=== PATIENT | male | born 2000 | race African-American/Black ===

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

== ENCOUNTER 2022-04-23 10:00 | Emergency (ER) | payer OTHER ==
[~2022-04-23] VITALS: Ht 177.8 cm; Wt 64.0 kg
[2022-04-23] MEDS ORDERED: DICY10CA88 MT (12:04)
[2022-04-23] MEDS ORDERED: DICYCLOMINE HCL 10MG CAPSULE PO NR (12:15)
[2022-04-23 13:27] VITALS: BP 124/82
[2022-04-23 13:55] LABS: CLARITY URINE CLEAR (CLEAR); COLOR URINE YELLOW (YELLOW); KETONES URINE 1+ (NEGATIVE); LEUKOCYTE ESTERASE URINE NEGATIVE (NEGATIVE); NITRITE URINE NEGATIVE (NEGATIVE); OCCULT BLOOD URINE NEGATIVE (NEGATIVE); PH URINE 5.5 (4.5-8.0); PROTEIN URINE 1+ (NEGATIVE); SPECIFIC GRAVITY URINE 1.031 (1.005-1.030)
[2022-04-23 14:09] LABS: *AMPHETAMINES SCREEN URINE NEGATIVE (NEGATIVE); *BARBITURATES SCREEN URINE NEGATIVE (NEGATIVE); *BENZODIAZEPINES SCREEN URINE NEGATIVE (NEGATIVE); *COCAINE SCREEN URINE NEGATIVE (NEGATIVE); CANNABINOID URINE SCREEN NEGATIVE (NEGATIVE); METHADONE URINE SCREEN NEGATIVE (NEGATIVE); OPIATES URINE SCREEN NEGATIVE (NEGATIVE); PHENCYCLIDINE URINE SCREEN NEGATIVE (NEGATIVE)
== END 2022-04-23 13:30 | disposition home or self-care (01) ==
LOC: ER 10:00
DX: R19.7 Diarrhea, unspecified (principal); R55 Syncope and collapse
CPT/HCPCS: 80305; 81003; 87015; 87045; 87427; 87449; 87493; 99283